=== PATIENT | male | born 1930 | race Caucasian/White ===

== ENCOUNTER 2017-09-22 01:39 | Emergency (ER) | payer MEDICARE ==
[~2017-09-22] VITALS: Ht 177.8 cm; Wt 72.7 kg
[~2017-09-22 01:39] MED LIST: NOCURR
[2017-09-22] MEDS ORDERED: SODIUM CHLORIDE 0.9% 1,000 ML IV ONE (03:00)
[2017-09-22] MEDS ORDERED: LORazepam 2 MG/ML VIAL IVP ONE (03:00)
[2017-09-22] MEDS ORDERED: HALOPERIDOL LACTATE 5 MG/ML VIAL IM ONE (03:00)
[2017-09-22 03:04] LABS: BASOPHILS # (AUTO) 0.05 K/uL (0.00-0.20); BASOPHILS % (AUTO) 0.8 % (0.0-2.0); EOSINOPHILS # (AUTO) 0.02 K/uL (0.00-0.70); EOSINOPHILS % (AUTO) 0.39 % (1.0-6.0); HEMATOCRIT 37.3 % (41-53); HEMOGLOBIN 12.4 g/dL (13.5-17.5); LYMPHOCYTES # (AUTO) 1.8 K/uL (1.0-4.8); LYMPHOCYTES % (AUTO) 28.9 % (22.0-44.0); MEAN CORPUSCULAR HEMOGLOBIN 30.3 pg (26.0-34.0); MEAN CORPUSCULAR HGB CONC 33.3 G/dL (31.0-37.0); MEAN CORPUSCULAR VOLUME 91 fL (80-100); MONOCYTES # (AUTO) 0.6 K/uL (0.1-1.0); MONOCYTES % (AUTO) 9.5 % (2.0-9.0); NEUTROPHILS # (AUTO) 3.6 K/uL (1.8-7.7); NEUTROPHILS % (AUTO) 60.3 % (40.0-70.0); PLATELET COUNT (AUTO) 199 K/uL (150-450); RED CELL DISTRIBUTION WIDTH 14.4 % (11.5-14.5)
[2017-09-22 03:13] LABS: ANION GAP 10 mmol/L (8-16); CALCIUM, TOTAL 8.6 mg/dL (8.8-10.5); CARBON DIOXIDE 25 mmol/L (22-29); CHLORIDE 100 mmol/L (98-107); CREATININE 0.87 mg/dL (0.60-1.30); GLOMERULAR FILTR. RATE CALC > 60 mL/min (>60); GLUCOSE,RANDOM 101 mg/dL (70-110); POTASSIUM 3.7 mmol/L (3.5-5.1); SODIUM SERUM 135 mmol/L (136-145); UREA NITROGEN, BLOOD 17 mg/dL (7-18)
[2017-09-22 03:19] LABS: ALANINE AMINOTRANSFERASE 18 U/L (12-78); ALBUMIN 3.6 g/dL (3.4-5.0); ALKALINE PHOSPHATASE 420 U/L (46-116); ASPARTATE AMINOTRANSFERASE 35 U/L (15-37); BILIRUBIN,TOTAL 0.9 mg/dL (0.1-1.0); TOTAL PROTEIN, SERUM 6.8 g/dL (6.4-8.2)
[2017-09-22 04:57] LABS: AMPHET/METH SCREEN,URINE NEGATIVE (NEGATIVE); BARBITURATE SCREEN, URINE NEGATIVE (NEGATIVE); BENZODIAZEPINES SCREEN,URINE NEGATIVE (NEGATIVE); CANNABINOID SCREEN,URINE NEGATIVE (NEGATIVE); COCAINE SCREEN,URINE NEGATIVE (NEGATIVE); METHADONE SCREEN, URINE NEGATIVE (NEGATIVE); OPIATE SCREEN,URINE NEGATIVE (NEGATIVE)
[2017-09-22 05:04] LABS: PHENCYCLIDINE SCREEN,URINE NEGATIVE (NEGATIVE)
[2017-09-22 09:55] VITALS: BP 135/68
== END 2017-09-22 10:04 | disposition home or self-care (01) ==
LOC: EMS 01:41 → EEVIPCON 01:41 → EMS 10:04
DX: F29 Unspecified psychosis not due to a substance or known physiological condition (principal); R41.0 Disorientation, unspecified; I10 Essential (primary) hypertension
CPT/HCPCS: 36415; 70450; 80053; 80307; 85025; 96361; 96372; 96374; 99285; G0480; J1630; J2060; J7030

== ENCOUNTER 2017-09-23 15:12 | Inpatient (IN) | payer MEDICARE ==
[~2017-09-23] VITALS: Ht 177.8 cm; Wt 71.6 kg
[2017-09-23 15:32] LABS: GLUCOSE,POINT OF CARE 107 MG/DL (70-110)
[2017-09-23 15:50] LABS: BASOPHILS # (AUTO) 0.03 K/uL (0.00-0.20); BASOPHILS % (AUTO) 0.5 % (0.0-2.0); EOSINOPHILS # (AUTO) 0.01 K/uL (0.00-0.70); EOSINOPHILS % (AUTO) 0.28 % (1.0-6.0); HEMOGLOBIN 12.2 g/dL (13.5-17.5); LYMPHOCYTES # (AUTO) 1.9 K/uL (1.0-4.8); LYMPHOCYTES % (AUTO) 34.4 % (22.0-44.0); MEAN CORPUSCULAR HEMOGLOBIN 30.8 pg (26.0-34.0); MEAN CORPUSCULAR HGB CONC 33.9 G/dL (31.0-37.0); MEAN CORPUSCULAR VOLUME 91 fL (80-100); MONOCYTES # (AUTO) 0.4 K/uL (0.1-1.0); MONOCYTES % (AUTO) 7.4 % (2.0-9.0); NEUTROPHILS # (AUTO) 3.1 K/uL (1.8-7.7); NEUTROPHILS % (AUTO) 57.4 % (40.0-70.0); PLATELET COUNT (AUTO) 190 K/uL (150-450); RED BLOOD CELL COUNT(AUTO) 3.96 MIL/uL (4.50-5.90); RED CELL DISTRIBUTION WIDTH 14.3 % (11.5-14.5); WHITE BLOOD COUNT (AUTO) 5.4 K/uL (4.5-11.0)
[2017-09-23 16:01] LABS: ANION GAP 7 mmol/L (8-16); CALCIUM, TOTAL 8.4 mg/dL (8.8-10.5); CARBON DIOXIDE 27 mmol/L (22-29); CHLORIDE 105 mmol/L (98-107); CREATININE 0.78 mg/dL (0.60-1.30); GLOMERULAR FILTR. RATE CALC > 60 mL/min (>60); POTASSIUM 3.5 mmol/L (3.5-5.1); SODIUM SERUM 139 mmol/L (136-145); UREA NITROGEN, BLOOD 12 mg/dL (7-18)
[2017-09-23 16:07] LABS: ALANINE AMINOTRANSFERASE 21 U/L (12-78); ALBUMIN 3.5 g/dL (3.4-5.0); ASPARTATE AMINOTRANSFERASE 39 U/L (15-37); BILIRUBIN,TOTAL 0.7 mg/dL (0.1-1.0); TOTAL PROTEIN, SERUM 6.7 g/dL (6.4-8.2)
[2017-09-23] MEDS ORDERED: LORazepam 2 MG/ML VIAL IM ONE (17:45)
[2017-09-23] MEDS ORDERED: DiphenhydrAMINE HCL 50 MG/ML VIAL IM ONE (17:45)
[2017-09-23] MEDS ORDERED: HALOPERIDOL LACTATE 5 MG/ML VIAL IM ONE (17:45)
[2017-09-23] MEDS ORDERED: LORazepam 2 MG TABLET PO PRN (21:30)
[2017-09-23] MEDS ORDERED: HALOPERIDOL 5 MG TABLET PO PRN (21:30)
[2017-09-23] MEDS ORDERED: ZOLPIDEM TARTRATE 10 MG TABLET PO PRN (21:30)
[2017-09-23 22:23] LABS: CHOL/HDL RATIO 3.3 (4.2-7.3); THYROID STIMULATING HORMONE 2.09 uIU/mL (0.36-3.74)
[2017-09-24 01:32] VITALS: BP 143/73
[2017-09-24] MEDS ORDERED: PNEUMOCOCCAL VACCINE POLYVALENT 0.5 ML VIAL [PPSV23] IM ONE (02:45)
[2017-09-24] MEDS ORDERED: INFLUENZA VIRUS VACCINE QVS 2017-18 (3YR+)/PF 60 MCG/0.5 ML SYRINGE IM ONE (02:45)
[2017-09-24 09:07] VITALS: BP 140/76
[2017-09-24] MEDS ORDERED: IBUPROFEN 600 MG TABLET PO PRN (09:45)
[2017-09-24] MEDS ORDERED: MAGNESIUM HYDROXIDE SUSPENSION 30 ML UDCUP PO PRN (09:45)
[2017-09-24] MEDS ORDERED: ONDANSETRON HCL 4 MG TABLET PO PRN (09:45)
[2017-09-24] MEDS ORDERED: ALBUTEROL SULFATE HFA 90 MCG/PUFF 8 GM INHALER IH PRN (09:45)
[2017-09-24] MEDS ORDERED: BACITRACIN 28.4 GM OINTMENT TP PRN (09:45)
[2017-09-24] MEDS ORDERED: CloNIDine HCL 0.1 MG TABLET PO PRN (09:45)
[2017-09-24] MEDS ORDERED: MAG HYDROX/AL HYDROX/SIMETH ES 30 ML SUSPENSION UDCUP PO PRN (09:45)
[2017-09-24] MEDS ORDERED: LOPERAMIDE HCL 2 MG CAPSULE PO PRN (09:45)
[2017-09-24] MEDS ORDERED: ACETAMINOPHEN 325 MG TABLET PO PRN (09:45)
[2017-09-24] MEDS ORDERED: PETROLATUM,WHITE 71 GM JELLY TP PRN (09:45)
[2017-09-24] MEDS ORDERED: BENZOCAINE/MENTHOL LOZENGE [8 LOZENGES/PACKET] MM PRN (10:00)
[2017-09-24 17:24] VITALS: BP 142/78
[2017-09-25 08:40] VITALS: BP 151/82
[2017-09-25] MEDS: DOCUSATE SODIUM 100 MG CAPSULE PO SCH (08:49)
[2017-09-25] MEDS: OMEPRAZOLE 20 MG CAPSULE PO SCH (08:49)
[2017-09-25] MEDS: MEMANTINE HCL 5 MG TABLET PO SCH (17:29)
[2017-09-25 20:06] VITALS: BP 136/77
[2017-09-25] MEDS: DONEPEZIL HCL 5 MG TABLET PO SCH (20:46)
[2017-09-25] MEDS: OLANZapine 10 MG TABLET PO SCH (20:46)
[2017-09-26 06:10] VITALS: BP 145/79
[2017-09-26 07:16] LABS: HEPATITIS Bs ANTIGEN SCREEN P Negative (Negative); HEPATITIS C AB SCREEN <0.1 s/co ratio (0.0-0.9)
[2017-09-26] MEDS: OMEPRAZOLE 20 MG CAPSULE PO SCH (09:00)
[2017-09-26] MEDS: DOCUSATE SODIUM 100 MG CAPSULE PO SCH (09:00)
[2017-09-26] MEDS: MEMANTINE HCL 5 MG TABLET PO SCH ×2 (09:00→17:03)
[2017-09-26] MEDS: CHOLECALCIFEROL (VIT D3) 1,000 UNITS TABLET PO SCH (09:00)
[2017-09-26] MEDS: MULTIVITAMINS WITH MINERALS, THERAPEUTIC TABLET PO SCH (09:00)
[2017-09-26 10:49] VITALS: BP 154/67
[2017-09-26 19:31] VITALS: BP 139/85
[2017-09-26] MEDS: OLANZapine 10 MG TABLET PO SCH (20:33)
[2017-09-26] MEDS: DONEPEZIL HCL 5 MG TABLET PO SCH (20:37)
[2017-09-27] MEDS: MULTIVITAMINS WITH MINERALS, THERAPEUTIC TABLET PO SCH (09:00)
[2017-09-27] MEDS: OMEPRAZOLE 20 MG CAPSULE PO SCH (09:00)
[2017-09-27] MEDS: CHOLECALCIFEROL (VIT D3) 1,000 UNITS TABLET PO SCH (09:00)
[2017-09-27] MEDS: DOCUSATE SODIUM 100 MG CAPSULE PO SCH (09:00)
[2017-09-27] MEDS: MEMANTINE HCL 5 MG TABLET PO SCH ×3 (09:00→17:32)
[2017-09-27 09:26] VITALS: BP 184/70
[2017-09-27] MEDS: DONEPEZIL HCL 5 MG TABLET PO SCH (20:40)
[2017-09-27] MEDS: OLANZapine 10 MG TABLET PO SCH (20:40)
[2017-09-28 08:51] VITALS: BP 156/80
[2017-09-28] MEDS: CHOLECALCIFEROL (VIT D3) 1,000 UNITS TABLET PO SCH (09:25)
[2017-09-28] MEDS: MULTIVITAMINS WITH MINERALS, THERAPEUTIC TABLET PO SCH (09:25)
[2017-09-28] MEDS: OMEPRAZOLE 20 MG CAPSULE PO SCH (09:25)
[2017-09-28] MEDS: MEMANTINE HCL 5 MG TABLET PO SCH ×2 (09:25→18:28)
[2017-09-28] MEDS: DOCUSATE SODIUM 100 MG CAPSULE PO SCH (09:25)
[2017-09-28 17:30] VITALS: BP 146/89
[2017-09-28] MEDS: DONEPEZIL HCL 5 MG TABLET PO SCH (21:17)
[2017-09-28] MEDS: OLANZapine 10 MG TABLET PO SCH (21:17)
[2017-09-29 08:05] VITALS: BP 131/69
[2017-09-29] MEDS: CHOLECALCIFEROL (VIT D3) 1,000 UNITS TABLET PO SCH ×2 (09:00→10:48)
[2017-09-29] MEDS: DOCUSATE SODIUM 100 MG CAPSULE PO SCH ×2 (09:00→10:48)
[2017-09-29] MEDS: MEMANTINE HCL 5 MG TABLET PO SCH ×3 (09:00→17:00)
[2017-09-29] MEDS: OMEPRAZOLE 20 MG CAPSULE PO SCH ×2 (09:00→10:48)
[2017-09-29] MEDS: MULTIVITAMINS WITH MINERALS, THERAPEUTIC TABLET PO SCH (09:00)
[2017-09-29 17:00] VITALS: BP 114/70
[2017-09-29] MEDS: OLANZapine 10 MG TABLET PO SCH (21:00)
[2017-09-29] MEDS: DONEPEZIL HCL 5 MG TABLET PO SCH (21:00)
[2017-09-30 08:28] VITALS: BP 165/90
[2017-09-30] MEDS: OMEPRAZOLE 20 MG CAPSULE PO SCH (09:00)
[2017-09-30] MEDS: MULTIVITAMINS WITH MINERALS, THERAPEUTIC TABLET PO SCH (09:00)
[2017-09-30] MEDS: CHOLECALCIFEROL (VIT D3) 1,000 UNITS TABLET PO SCH (09:00)
[2017-09-30] MEDS: DOCUSATE SODIUM 100 MG CAPSULE PO SCH (09:00)
[2017-09-30] MEDS: MEMANTINE HCL 5 MG TABLET PO SCH ×2 (09:00→17:55)
[2017-09-30 16:05] VITALS: BP 179/98
[2017-09-30 17:03] VITALS: BP 152/84
[2017-09-30] MEDS: OLANZapine 10 MG TABLET PO SCH (21:00)
[2017-09-30] MEDS: DONEPEZIL HCL 5 MG TABLET PO SCH (21:00)
[2017-10-01 05:51] VITALS: BP 150/73
[2017-10-01] MEDS: MULTIVITAMINS WITH MINERALS, THERAPEUTIC TABLET PO SCH (09:00)
[2017-10-01] MEDS: MEMANTINE HCL 5 MG TABLET PO SCH ×2 (09:00→17:57)
[2017-10-01] MEDS: CHOLECALCIFEROL (VIT D3) 1,000 UNITS TABLET PO SCH (09:00)
[2017-10-01] MEDS: OMEPRAZOLE 20 MG CAPSULE PO SCH (09:00)
[2017-10-01] MEDS: DOCUSATE SODIUM 100 MG CAPSULE PO SCH (09:00)
[2017-10-01 09:20] VITALS: BP 137/84
[2017-10-01 16:51] VITALS: BP 135/82
[2017-10-01] MEDS: OLANZapine 10 MG TABLET PO SCH (21:00)
[2017-10-01] MEDS: DONEPEZIL HCL 5 MG TABLET PO SCH (21:00)
[2017-10-02 06:20] VITALS: BP 144/62
[2017-10-02 08:33] VITALS: BP 143/75
[2017-10-02] MEDS: CHOLECALCIFEROL (VIT D3) 1,000 UNITS TABLET PO SCH (09:00)
[2017-10-02] MEDS: DOCUSATE SODIUM 100 MG CAPSULE PO SCH (09:00)
[2017-10-02] MEDS: MEMANTINE HCL 5 MG TABLET PO SCH ×2 (09:00→17:00)
[2017-10-02] MEDS: OMEPRAZOLE 20 MG CAPSULE PO SCH (09:00)
[2017-10-02] MEDS: MULTIVITAMINS WITH MINERALS, THERAPEUTIC TABLET PO SCH (09:00)
[2017-10-02 16:00] VITALS: BP 149/78
[2017-10-02] MEDS: OLANZapine 10 MG TABLET PO SCH (21:00)
[2017-10-02] MEDS: DONEPEZIL HCL 5 MG TABLET PO SCH (21:00)
[2017-10-03 04:52] VITALS: BP 146/66
[2017-10-03 08:30] VITALS: BP 142/86
[2017-10-03] MEDS: MULTIVITAMINS WITH MINERALS, THERAPEUTIC TABLET PO SCH ×2 (09:00→09:59)
[2017-10-03] MEDS: CHOLECALCIFEROL (VIT D3) 1,000 UNITS TABLET PO SCH (09:00)
[2017-10-03] MEDS: MEMANTINE HCL 5 MG TABLET PO SCH ×3 (09:00→17:00)
[2017-10-03] MEDS: OMEPRAZOLE 20 MG CAPSULE PO SCH ×2 (09:00→09:59)
[2017-10-03] MEDS: DOCUSATE SODIUM 100 MG CAPSULE PO SCH ×2 (09:00→09:59)
[2017-10-03 16:16] VITALS: BP 143/78
[2017-10-03] MEDS: DONEPEZIL HCL 5 MG TABLET PO SCH (21:00)
[2017-10-03] MEDS: OLANZapine 10 MG TABLET PO SCH (21:00)
[2017-10-04] MEDS: DOCUSATE SODIUM 100 MG CAPSULE PO SCH (09:00)
[2017-10-04] MEDS: CHOLECALCIFEROL (VIT D3) 1,000 UNITS TABLET PO SCH (09:00)
[2017-10-04] MEDS: OMEPRAZOLE 20 MG CAPSULE PO SCH (09:00)
[2017-10-04] MEDS: MULTIVITAMINS WITH MINERALS, THERAPEUTIC TABLET PO SCH (09:00)
[2017-10-04] MEDS: MEMANTINE HCL 5 MG TABLET PO SCH ×2 (09:00→17:00)
[2017-10-04 12:55] VITALS: BP 120/54
[2017-10-04 16:02] VITALS: BP 143/84
[2017-10-04] MEDS: DONEPEZIL HCL 5 MG TABLET PO SCH (21:00)
[2017-10-04] MEDS: OLANZapine 10 MG TABLET PO SCH (21:00)
[2017-10-05] MEDS: MEMANTINE HCL 5 MG TABLET PO SCH (09:00)
[2017-10-05] MEDS: CHOLECALCIFEROL (VIT D3) 1,000 UNITS TABLET PO SCH (09:00)
[2017-10-05] MEDS: MULTIVITAMINS WITH MINERALS, THERAPEUTIC TABLET PO SCH (09:00)
[2017-10-05] MEDS ORDERED: LISINOPRIL 5 MG TABLET PO SCH (09:00)
[2017-10-05] MEDS: OMEPRAZOLE 20 MG CAPSULE PO SCH (09:00)
[2017-10-05] MEDS: DOCUSATE SODIUM 100 MG CAPSULE PO SCH (09:00)
[2017-10-05 09:04] VITALS: BP 151/73
[2017-10-05] MEDS ORDERED: OLAN10TA3 PO (10:39)
[2017-10-05] MEDS ORDERED: MEMA5 PO (10:39)
[2017-10-05] MEDS ORDERED: DONE5TAB5 PO (10:39)
[2017-10-05] MEDS ORDERED: DSS100 PO (10:41)
[2017-10-05] MEDS ORDERED: VITAD1000 PO (10:41)
[2017-10-05] MEDS ORDERED: LISI-660 PO (10:42)
[2017-10-05] MEDS ORDERED: MULT-248 PO (10:42)
[2017-10-05] MEDS ORDERED: OMEP20 PO (10:43)
== END 2017-10-05 12:40 | DRG 885 ==
LOC: EMS 15:14 → 3EC 22:23 → 3EI 09-26 12:37
PROVIDERS: ADMIT Psychiatry & Neurology Psychiatry; ATTEND Psychiatry & Neurology Psychiatry
PROC: 3E0234Z Introduction of Serum, Toxoid and Vaccine into Muscle, Percutaneous Approach (ICD-10-PCS; principal; 2017-09-24)
DX: F29 Unspecified psychosis not due to a substance or known physiological condition (principal); E83.51 Hypocalcemia; D64.9 Anemia, unspecified; Z23 Encounter for immunization; F22 Delusional disorders; G47.00 Insomnia, unspecified; H91.90 Unspecified hearing loss, unspecified ear; I10 Essential (primary) hypertension; K21.9 Gastro-esophageal reflux disease without esophagitis; K59.00 Constipation, unspecified; M19.90 Unspecified osteoarthritis, unspecified site; Z78.1 Physical restraint status; R26.81 Unsteadiness on feet; R41.0 Disorientation, unspecified; R74.0 Nonspecific elevation of levels of transaminase and lactic acid dehydrogenase [LDH]; R26.9 Unspecified abnormalities of gait and mobility; Z56.0 Unemployment, unspecified
CPT/HCPCS: 80074; 82306; 82962; 84443; 86592; 90471; 96372; 99285; G0480; J1200; J1630; J2060